=== PATIENT | male | born 1965 | race Caucasian/White ===

== ENCOUNTER 2016-10-03 04:12 | Day surgery (SDC) | payer BC ==
[2016-09-29 12:49] LABS: HEMATOCRIT 38.3 % (40.0-51.0); HEMOGLOBIN 13.5 g/dL (13.6-17.8)
[2016-09-29 13:03] LABS: BUN (BLOOD UREA NITROGEN) 19 MG/DL (6-23); CALCIUM, SERUM 8.6 MG/DL (8.5-10.4); CHLORIDE, SERUM 108 MMOL/L (96-112); CO2 (CARBON DIOXIDE) 28 MMOL/L (24-34); CREATININE 0.86 MG/DL (0.70-1.30); GFR AFRICAN AMERICAN 115 ML/MIN (>=60); GFR NON AFRICAN AMERICAN 99 ML/MIN (>=60); GLUCOSE, SERUM 127 MG/DL (60-99); SODIUM, SERUM 141 MMOL/L (135-148)
--- NOTE | ~2016-10-03 | OP ---
Record Of Operation [facility] [address] [place]. [address] NAME: TERESA OORZCO : 61 STATUS : REG [facility] [place] PAT#: [id number] AGE: 51 ADM/REG DATE : 10/03/16 MR#: [id number] REPORT SERV DATE: 10/03/16 DICTATED BY: GEO RHODES DATE: 10/03/16 REPORT STATUS : Draft TRANSCRIBED BY: MODL DATE: 10/03/16 DATE OF PROCEDURE: 10/03/2016 PREOPERATIVE DIAGNOSIS: Herniated nucleus polyposis, C5-6 and C6-7 with radiculopathy on the right side. POSTOPERATIVE DIAGNOSIS: Herniated nucleus polyposis, C5-6 and C6-7 with radiculopathy on the right side. PROCEDURE: 1. Microscopic navigation assisted surgery. 2. Anterior cervical diskectomy with foraminotomy, C5-6 and C6-7. 3. Implantation of a Prestige LP disc arthroplasty, C5-6 and C6-7. SURGEON: Geo Rhodes D.O. TRANSMISSION SUPERVISOR: Steve Ngo. ANESTHESIA: General. BLOOD LOSS: 25 mL. INDICATIONS FOR SURGERY: 51-year-old male, right-hand dominant, with rather severe intractable right shoulder and arm pain. It has been through time, medication, therapy, and nothing has helped. His plain x-rays reveal good cervical lordosis, minimal collapse of the disc space, no instability patterns. MRI shows a combination of disc osteophyte complex, which is causing right-sided impingement. The patient has failed conservative care and brought to surgery for the above. Prior to surgery, risks, benefits, alternatives, and expectations were explained. Consent form has been signed. Please note, because of the complexity of surgery, the need to identify correct level of surgery intraoperatively, as well as desire to carry out the safest, most precise dissection, I felt intraoperative navigation was necessary. DESCRIPTION OF PROCEDURE: The patient was identified in the preop holding area, antibiotic prophylaxis given. Neurophysiology monitoring leads inserted. The patient was brought to the operative suite. General anesthetic including endotracheal intubation administered. With the patient in a supine position, a small bolster behind his shoulders, the scalp was painted with Betadine solution. [place] three-point fixation was attached to the skull using 60 pounds of torque in standard position. The Blaze[employer]eter navigational registration frame was attached to the [place]. The isolation drapes were placed. The neck was scrubbed with Hibiclens solution. DuraPrep was painted. Sterile drapes were applied. Intraoperative CT scan with O-arm was obtained. CT information used to register Record Of Operation [facility] [address] [place]. [address] NAME: TERESA OROZCO : 61 STATUS : REG [facility] PAT#: [id number] AGE: 51 ADM/REG DATE : 10/03/16 MR#: [id number] REPORT SERV DATE: 10/03/16 DICTATED BY: GEO RHODES DATE: 10/03/16 REPORT STATUS : Draft TRANSCRIBED BY: MODL DATE: 10/03/16 navigational system. With navigational assistance, I identified the C5-6 and C6-7 level. At the mid body of C6 and parallel with this location, I carried out a 2.5 cm Bey-Dumont skin incision. The platysma was incised in line with the skin incision. The superficial layer of the deep cervical fascia was released along the anterior border of the sternocleidomastoid. Blunt dissection was carried out to the retropharyngeal space. The longus coli muscles were subperiosteally elevated. Retractors were placed. The microscope was sterilely draped and used throughout the remainder of the procedure. With navigational assistance, we re-identified C5-6 and C6-7, starting at C6-7. We placed a Goessel distractor pin in the mid body of each level in the midline. There was a small osteophyte that was debrided anteriorly. Discectomy was carried out with curettes and rongeurs. The uncinate processes were debrided and a 1 mm Kerrison rongeur was used to take down the posterior longitudinal ligament and completely decompress the foramen left and right. There was foraminal stenosis of udgjwbew-mu-[id number] degree on the right side. We then used intraoperative C-arm and under direct live C-arm, we chose this correct size. We chose a 6 mm in height and 18 mm in depth. Once we had chosen the implant size, we placed a drill guide. We checked the rotational accuracy using AP view. We then drilled the four holes, followed by placement of the rail cutter. The rail cutter was then impacted into its resting position, followed by implantation of the disc arthroplasty. Final AP and lateral x rays showed excellent position of the device. Wounds were irrigated. We then moved to C5-6 and once again with the same identical steps being carried out, we completed discectomy, foraminotomy, trialing and then placement of the arthroplasty in the same steps as indicated below for C6-7. In the end, all distractor pins were removed. Meticulous hemostasis had been obtained. No bleeding was noted. No drain was necessary. The platysma was closed with a running 3-0 Vicryl suture. The subcutaneous tissue was closed with 3-0 Vicryl suture and subcuticular 4-0 PDS used for skin closure. Sterile dressings were applied. The patient awakened and extubated and taken to the recovery room in satisfactory condition having tolerated procedure well. Sponge, needle, and instrument counts were correct. No intraoperative complications noted. VIVEK/JELANI Geo Rhodes D.O. / [id number] CC: Kelli Torres M.D.
[~2016-10-03 04:12] MED LIST: ADVIL PO; ASAB PO; CIALIS5 MG PO; COREG6 PO; COZ25 PO; DEPO-TESTOS100 MG/ML IM; MOBIC7.5 PO; NEUR100 PO; PEP20 PO; PRAV10 PO; PRILOSEC OTC20 MG PO; PROZAC PO; T PO
[2017-01-17] MEDS ORDERED: MULTIVITAMI1 PO (11:46)
[2017-01-17] MEDS ORDERED: ZANAFLEX2 MG PO (11:48)
== END 2016-10-03 18:09 | disposition home or self-care (01) ==
LOC: SDC 04:12
PROVIDERS: Orthopaedic Surgery Orthopaedic Surgery of the Spine
PROC: 0RR30JZ Replacement of Cervical Vertebral Disc with Synthetic Substitute, Open Approach (ICD-10-PCS; principal; 2016-10-03 05:45)
DX: M50.122 Cervical disc disorder at C5-C6 level with radiculopathy (principal); M50.123 Cervical disc disorder at C6-C7 level with radiculopathy; G47.33 Obstructive sleep apnea (adult) (pediatric); K21.9 Gastro-esophageal reflux disease without esophagitis; F41.9 Anxiety disorder, unspecified; Z91.013 Allergy to seafood; Z79.82 Long term (current) use of aspirin; Z79.899 Other long term (current) drug therapy; Z98.890 Other specified postprocedural states
CPT/HCPCS: 76000; 80048; 82962; 85014; 85018; 87641; 88304; 93005; A9270-GY; C1713; J0690; J1030; J2250; J2405; J2710; J3010; J3370